=== PATIENT | female | born 1965 | race Caucasian/White ===

== ENCOUNTER 2024-03-25 09:23 | Outpatient (AMB) | payer OTHER, SELFPAY ==
--- NOTE | 2024-03-25 09:38 | MHC.OFFVIS ---
Vital Signs 03/25/24 09:40 Height 5 ft 6 in Weight 185 lb 6.54 oz BMI 29.9 BP 118/72 Blood Pressure Location Lt brachial Position Sitting Pulse 78 Pulse Source Pulse Oximeter Pulse Oximetry (%) 97 Oxygen Delivery Method Room Air Intake Visit Reasons: arthritis Intake Note: Patient presents for arthritis in hands, elbows, and neck. Allergies No Known Allergies Allergy (Verified 03/25/24 09:43) HPI HPI arthritis: Details: She has been using Celebrex twice a day. She is unable to tell me dose. Celebrex is helping reduce pain in her hands, neck and elbows. She has also been able to reduce oxycodone prescription from PCP to 5 mg twice a day. 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 She has requiring to do transfers from bed to chair and has been able to cope with his weight. She sometimes has had pain. No new joint swelling. [facility] Surgical History (Updated 03/25/24 @ 09:51 by Kenyatta Fuchs CMA) History of carpal tunnel surgery H/O foot surgery H/O elbow surgery Family History (Updated 03/25/24 @ 09:52 by Kenyatta Fuchs CMA) Father Cancer Social History (Updated 03/25/24 @ 09:54 by Kenyatta Fuchs CMA) Alcohol intake: current Alcohol intake frequency: holidays/special occasions only Patient Tobacco Use Status: Current everyday Tobacco user Cigarettes Per Day: 1 Substance Use Type: Marijuana Review of Systems Const All systems reviewed & are unremarkable except as noted in HPI and below Physical Exam Vital Signs: Last Vital Signs Pulse 78 03/25/24 09:40 BP 118/72 03/25/24 09:40 Pulse Ox 97 03/25/24 09:40 Oxygen Delivery Method Room Air 03/25/24 09:40 BMI result Body Mass Index 29.9 Const Other: General: Comfortable CVS: RRR Respiratory: clear to auscultation bilaterally. Good respiratory effort Skin: No lesions seen MSK: No tenderness of any joints. Heberden's node present. Good range of motion of upper extremity and lower extremity. Assessment & Plan Assessment & Plan (1) Generalized osteoarthritis: Comment: Pain is controlled on Celebrex Code(s): M15.9 - Polyosteoarthritis, unspecified Category: Medical Plan: Labs on long-term NSAID due today Continue Celebrex twice a day. She will call office or send a patient portal message to update dose Celebrex She will call office when she needs Celebrex refill [facility] Return to clinic in 6 months or sooner if needed (2) Osteoarthritis, hand, primary localized: Comment: Controlled on Celebrex. Code(s): M19.049 - Primary osteoarthritis, unspecified hand Category: Medical Plan: She has diclofenac gel 1% at home. 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 anti-inflammatories (NSAID) Category: Medical Plan: See above Orders: Orders Alanine Aminotransferase Today Z79.1 - shelter (current) use of non-steroidal anti-inflammatories (NSAID) Aspartate Amino Transferase Today Z79.1 - shelter (current) use of non-steroidal anti-inflammatories (NSAID) Creatinine Today Z79.1 - 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
[2024-03-25 09:40] VITALS: BP 118/72; PULSE 78; O2SAT 97; BMI 29.9
== END 2024-03-25 10:30 | disposition home or self-care (01) ==
PROVIDERS: Visit Provider Internal Medicine Rheumatology
DX: M19.049 Primary osteoarthritis, unspecified hand (principal); Z79.1 Long term (current) use of non-steroidal anti-inflammatories (NSAID)
CPT/HCPCS: 99213

== ENCOUNTER → 2024-03-25 09:23 | Outpatient (BNVA) | payer OTHER, SELFPAY | PROVIDERS: Visit Provider Internal Medicine Rheumatology ==

== ENCOUNTER 2024-09-02 10:07 | Outpatient (AMB) | payer OTHER, SELFPAY ==
--- NOTE | 2024-09-02 10:13 | MHC.OFFVIS ---
Vital Signs 09/02/24 10:16 Height 5 ft 6 in Weight 187 lb BMI 30.2 BP 160/120 H Blood Pressure Location Rt brachial Position Sitting Pulse 88 Pulse Source Pulse Oximeter Pulse Oximetry (%) 96 Oxygen Delivery Method Room Air Intake Visit Reasons: Follow Up 6mo Intake Note: Patient presents for arthritis in hands, elbows, and neck. Allergies No Known Allergies Allergy (Verified 09/02/24 10:14) HPI HPI Follow Up 6mo: Details: She is experiencing most pain in her hands. She is also experiencing pain in her neck. She does stretches regularly. 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 Plan to retire in 2 years. She takes Celebrex twice a day with benefit. She has not had labs checked for drug monitoring in the last 6 months. [facility] Surgical History History of carpal tunnel surgery H/O foot surgery H/O elbow surgery Family History Father Cancer Social History Alcohol intake: current Alcohol intake frequency: holidays/special occasions only Patient Tobacco Use Status: Current everyday Tobacco user Cigarettes Per Day: 1 Substance Use Type: Marijuana Physical Exam Vital Signs: Last Vital Signs Pulse 88 09/02/24 10:16 BP 160/120 H 09/02/24 10:16 Pulse Ox 96 09/02/24 10:16 Oxygen Delivery Method Room Air 09/02/24 10:16 BMI result Body Mass Index 30.2 Const Other: General: Comfortable CVS: RRR Respiratory: clear to auscultation bilaterally. Good respiratory effort Skin: No lesions seen MSK: No tenderness of any joints. Heberden's node present. Good range of motion of upper extremity and lower extremity. Normal cervical range of motion. Assessment & Plan Assessment & Plan (1) Generalized osteoarthritis: Comment: Pain is controlled on Celebrex Code(s): M15.9 - Polyosteoarthritis, unspecified Category: Medical Plan: Labs on long-term NSAID due today Continue Celebrex twice a day. She reports she is taking Celebrex 50 mg daily prescribed by PCP. I do not have [facility] records. She will confirmed dose when she checks her bottle at home. She will call office when she needs Celebrex refill [facility] Return to clinic in 6 months or sooner if needed (2) Osteoarthritis, hand, primary localized: Comment: Controlled on Celebrex. Code(s): M19.049 - Primary osteoarthritis, unspecified hand Category: Medical Plan: She has diclofenac gel 1% at home. 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
[2024-09-02 10:16] VITALS: BP 160/120; PULSE 88; O2SAT 96; BMI 30.2
--- OUTSIDE RECORDS SUMMARY | 2024-09-02 11:36 | XMS_ITS | Patient Health Record ---
Author Organization [facility] Address [address] [place] [address] Support Name Relationship Address Phone SUZIE RODO Guarantor Unknown [phone] Reason For Referral No Information Medications Medication SIG (Take, Route, Fr equency, Duration) Notes Start Date End Date Status Vitamin B-6 25MG 1 ORAL three times daily for -3 Est[facility]-MJ 0 07/04/2011 Active traZODone HCl 50mg 1 ORAL at bedtime for -3 Est[facility]-MJ 2011 Active oxyCODONE HCl 5MG 1 ORAL every four hours for 10 Estiven-MJ 0 07/22/2011 Active Magnesium ORAL for -3 Est[facility]-MJ 07/04/2011 Active FLUoxetine HCl 20MG 1 ORAL daily for -3 Estiven-MJ 04/09/2011 Active Climara 0.025 mg/d 1 Transdermal once w eekly for -3 Estiven-MJ 04/09/2011 Active Problems Problem Type SNOMED Code ICD Code Onset Dates Problem Status W/U Status Risk Notes Problem Hyperlipidemia (65609628) Other and unspecified hyperlipidemia (272.4) Active confirmed Major Problem Depressive disorder, not elsewhere classified (311) Active confirmed Major Problem Female genital organ symptoms (260678032) Other specified symptom associated with female genital organs (625.8) Active confirmed Major Problem Insomnia (011772406) Insomnia, unspecified (780.52) Active confirmed Major Plan Of Treatment No Information Insurance Providers Payer Name Payer Address Payer Phone Subscriber Number Group Number Insured Name Patient Relationship to Insured Coverage Start Date Coverage End Date [facility] [address] [place] [place] [id number] RODO LARSEN Self - patient is the insured
== END 2024-09-02 10:48 | disposition home or self-care (01) ==
LOC: HO.RHES 10:08
PROVIDERS: Visit Provider Internal Medicine Rheumatology
DX: M15.9 Polyosteoarthritis, unspecified (principal); Z79.1 Long term (current) use of non-steroidal anti-inflammatories (NSAID)
CPT/HCPCS: 99213

== ENCOUNTER 2024-09-02 10:07 | Outpatient (REF) | payer OTHER, SELFPAY ==
[2024-09-02 17:29] LABS: MANUAL DIFF FLAG NO
[2024-09-02 17:41] LABS: Basophils Absolute Auto 0.1 X10*3/uL (0.0-0.2); Basophils Percent Auto 0.4 % (0-2); Eosinophils Absolute Auto 0.1 X10*3/uL (0.0-0.4); Hematocrit 39.7 % (37.0-47.0); Hemoglobin 13.4 g/dl (12.0-16.0); Imm Gran Abs Auto 0.05 X10*3/uL (0.00-0.03); Imm Gran Pct Auto 0.4 % (0.0-0.4); Lymphocytes Absolute Auto 4.3 X10*3/uL (1.2-4.9); Lymphocytes Percent Auto 33.5 % (20-40); Mean Corpuscular HGB Conc 33.8 g/dl (31.0-35.0); Mean Corpuscular Hemoglobin 29.4 pg (27.0-33.0); Mean Corpuscular Volume 87.1 fL (80.0-98.0); Mean Platelet Volume 10.2 fL (9.4-12.3); Monocytes Absolute Auto 0.8 X10*3/uL (0.1-1.2); Monocytes Percent Auto 6.3 % (2-11); Neutrophils Absolute Auto 7.4 x10*3/uL (2.0-8.3); Neutrophils Percent Auto 58.4 % (45-73); Platelet Count 342 X10*3/uL (160-400); Red Blood Count 4.56 X10*6/uL (4.20-5.50); Red Cell Distribution Width 13.7 % (11.0-16.0); White Blood Count 12.7 X10*3/uL (4.8-10.8)
[2024-09-02 17:53] LABS: Alanine Aminotransferase 30 U/L (0-31); Aspartate Amino Transferase 25 U/L (5-31); Estimated Glomerular Filt Rate > 60
== END 2024-09-02 10:08 | disposition home or self-care (01) ==
LOC: HO.HKASLDS 10:07
PROVIDERS: Visit Provider Internal Medicine Rheumatology
DX: Z79.1 Long term (current) use of non-steroidal anti-inflammatories (NSAID) (principal)
CPT/HCPCS: 36415; 82565; 84450; 84460; 85025

== ENCOUNTER 2025-03-10 09:54 | Outpatient (AMB) | payer OTHER, SELFPAY ==
--- NOTE | 2025-03-10 09:56 | A.OFFVIS_ITS ---
Vital Signs 03/10/25 09:57 Height 5 ft 6 in Weight 186 lb 1.122 oz BMI 30.0 BP 104/70 Blood Pressure Location Rt brachial Position Sitting Pulse 90 Pulse Source Pulse Oximeter Pulse Oximetry (%) 97 Oxygen Delivery Method Room Air Intake Visit Reasons: 6 Months Intake Note: Patient presents for arthritis in hands, elbows, and neck. Accompanied by: Self / Same As Patient Allergies No Known Allergies Allergy (Verified 03/10/25 09:57) HPI HPI 6 Months: Details: Right elbow pain started few months ago. Pain at night and with using her mouse/computer. 5th and 4th finger are numb at night. Takes additonal tylenol 650mg BID. She has been experiencing right shoulder pain for few months. Pain with activity. Recently she started baking cookies more often. [facility] Surgical History History of carpal tunnel surgery H/O foot surgery H/O elbow surgery Family History Father Cancer Social History Alcohol intake: current Alcohol intake frequency: holidays/special occasions only Patient Tobacco Use Status: Current everyday Tobacco user Cigarettes Per Day: 1 Substance Use Type: Marijuana Physical Exam Vital Signs: Last Vital Signs Pulse 90 03/10/25 09:57 BP 104/70 03/10/25 09:57 Pulse Ox 97 03/10/25 09:57 Oxygen Delivery Method Room Air 03/10/25 09:57 BMI result Body Mass Index 30.0 Const Other: General: Comfortable CVS: RRR Respiratory: clear to auscultation bilaterally. Good respiratory effort Skin: No lesions seen MSK: Tender right lateral epicondyle with soft tissue swelling. Pain along lateral epicondyle with resisted wrist extension. Heberden's node present. Good range of motion of upper extremity. She has right shoulder pain with abduction. Office Procedures AMB Joint Injection/Aspiration Joint Injection/Aspiration Details: Right lateral epicondylitis Prep: site was prepped using aseptic technique Injected: 20 mg of, Kenalog, with 0.5 mL of and 1% plain lidocaine Procedure: Informed verbal consent was obtained. The patient tolerated the procedure well. Postprocedure protocol was discussed with patient. Coding 36023 - Medium joint Procedure code (CPT) selection complete Office Meds lidocaine (PF) 10 mg/mL (1 %) injection solution Performing Provider: Aryan Cordero MD Performing Location: [facility] [place] [facility] Administered by: Aryan Cordero MD on 03/10/25 10:53 Dose Route Admin Location Dispensed Lot Number Expiration Date [facility] [place] [employer] Faculty Member 0.5 mL Infiltration right elbow 2 mL [id number] 08/21/26 58278-900-64 F [employer] Total Dispensed Waste 2 mL 75 % Kenalog 40 mg/mL suspension for injection Performing Provider: Aryan Cordero MD Performing Location: [facility] [place] [facility] Administered by: Aryan Cordero MD on 03/10/25 10:53 Dose Route Admin Location Dispensed Lot Number Expiration Date [facility] [place] [employer] Faculty Member 20 mg Tendon Sheath Inj. right elbow 1 mL [id number] 09/20/26 52996-6 049-1 [employer] Total Dispensed Waste 1 mL 50 % Assessment & Plan Assessment & Plan (1) Right rotator cuff tendinitis: Code(s): M75.81 - Other shoulder lesions, right shoulder Category: Medical Plan: PT ordered Change Celebrex to nabumetone 500 mg twice a day. If pain does not improve in 2 weeks, she will call office. I will then increase dose to nabumetone 750 mg t wice a day Labs for drug monitoring on chronic NSAID reviewed from 03/01/2025-okay. Return to clinic in 3 months (2) Right lateral epicondylitis: Comment: Uncontrolled pain. Soft tissue swelling along lateral epicondyle is likely leading to impingement of ulnar nerve causing cubital tunnel syndrome. Treatment of lateral epicondylitis should resolve numbness of right 4th and 5th finger. We discussed options for management. She prefers cortisone injection then PT and wearing a support band. Code(s): M77.11 - Lateral epicondylitis, right elbow Category: Medical Plan: Patient received cortisone injection to treat lateral epicondylitis Return to clinic in 3 months (3) Generalized osteoarthritis: Comment: Pain is controlled on Celebrex Code(s): M15.9 - Polyosteoarthritis, unspecified Category: Medical Plan: I am changing Celebrex to nabumetone for management of rotator cuff tendonitis and lateral epicondylitis. See above. Orders: Orders PT Evaluation and Treatment Today M75.81 - Other shoulder lesions, right shoulder AMB Joint Injection/Aspiration Today M77.11 - Lateral epicondylitis, right elbow Medications: New nabumetone Replace celebrex. Take with food 500 mg PO BID 60 tabs 5RF Coding Level of Care Code Est Pt Level 4 (56487) Add On Problem Visit Only Diagnoses Right rotator cuff tendinitis M75.81 Right lateral epicondylitis M77.11 Generalized osteoarthritis M15.9 CPT Codes Coding - 91685 Medium joint: 09891 - Medium joint ([id number])
[2025-03-10 09:57] VITALS: BP 104/70; PULSE 90; O2SAT 97
== END 2025-03-10 10:36 | disposition home or self-care (01) ==
LOC: HO.RHES 09:55
PROVIDERS: Visit Provider Internal Medicine Rheumatology
DX: M75.81 Other shoulder lesions, right shoulder (principal); M77.11 Lateral epicondylitis, right elbow; M15.9 Polyosteoarthritis, unspecified
CPT/HCPCS: 20550; 99214

== ENCOUNTER → 2025-03-10 09:54 | Outpatient (BNVA) | payer OTHER, SELFPAY | PROVIDERS: Visit Provider Internal Medicine Rheumatology | DX: M77.11 Lateral epicondylitis, right elbow (principal); M75.81 Other shoulder lesions, right shoulder; M15.9 Polyosteoarthritis, unspecified | CPT/HCPCS: 20550; J2003; J3301 ==